=== PATIENT | female | born 1955 | race Caucasian/White ===

== ENCOUNTER → 2017-01-30 | Outpatient (CLI) | payer BC ==
[~2017-01-30] MED LIST: AZEL0.15 NAE; B-CO1TAB53 PO; CITA40TA4 PO; CYAN100020 PO; EST5 PO; ESZO1TAB20 PO; FLAX10007 PO; FLNIN/ NAE; Folic Acid PO; GLUC1CAP33 PO; IBUP-1451 PO; MULTTAB58 PO; RST15 PO; WLLSR100 PO; ZOLP10TA6 PO; ZOLP1TAB PO
== END | disposition home or self-care (01) ==
LOC: C.PAPS 08:50
PROVIDERS: ATTEND Physician Assistant
DX: Z01.419 Encounter for gynecological examination (general) (routine) without abnormal findings (principal)

== ENCOUNTER → 2017-02-01 | Outpatient (CLI) | payer BC ==
[2017-02-04 10:12] LABS: C-REACTIVE PROT HIGHSEN <0.2 MG/L
== END | disposition home or self-care (01) ==
LOC: C.LAB 14:28
PROVIDERS: ATTEND Nurse Practitioner
DX: G47.00 Insomnia, unspecified (principal); M46.90 Unspecified inflammatory spondylopathy, site unspecified

== ENCOUNTER → 2017-07-10 | Outpatient (CLI) | payer BC ==
--- NOTE | 2017-07-10 14:28 | DIAGNOSTIC IMAGING REPORT ---
RIGHT KNEE 4 OR MORE CLINICAL HISTORY: RIGHT KNEE PAIN Right pain COMPARISON: None. DISCUSSION: Moderate degenerative changes lateral joint compartment as well as patellofemoral joint. Medial compartment appears to be generally intact. Mild reactive osteophytic change. There is no evidence for soft tissue swelling. IMPRESSION: Degenerative changes lateral and patellofemoral joint compartments. No acute posttraumatic abnormality. The above report was generated using voice recognition software. It may contain grammatical, syntax or spelling errors. Electronically signed by: Ambrocio Yousif M.D. 07/10/2017 2:26 PM Dictated Date/Time: 07/10/2017 2:26 PM
== END | disposition home or self-care (01) ==
LOC: C.RDSM 11:19
PROVIDERS: ATTEND Physician Assistant
DX: M25.561 Pain in right knee (principal)

== ENCOUNTER → 2017-09-01 | Outpatient (CLI) | payer BC ==
--- NOTE | 2017-09-01 10:57 | DIAGNOSTIC IMAGING REPORT ---
CERVICAL WITHOUT CONTRAST HISTORY: 62 years-old Female CERVICAL PAIN acute cervical spine pain with numbness and tingling of the upper extremities COMPARISON: MRI cervical spine 05/31/2017 TECHNIQUE: Multiplanar multisequence MRI the cervical spine was obtained without contrast. Sagittal T2 flexion and extension views were also obtained. FINDINGS: The imaged posterior fossa is unremarkable. Signal within the brainstem and cervical cord is within normal limits. No focal bone marrow edema or fracture or marrow replacing process. Straightening of the normal cervical lordosis. Imaged soft tissues are unremarkable with the exception of a suggested 4 mm T2 hyperintense left thyroid nodule which is nonspecific. Nonspecific ovoid circumscribed 6 mm area of increased T2 signal is noted in the region of the right hyoid bone on image 80 of series 7 of unknown clinical significance. There is no change in alignment with the flexion and extension views. C2-C3: Mild facet arthrosis without significant central canal or foraminal narrowing. Unchanged. C3-C4: Mild uncovertebral spurring and facet arthrosis. No central canal or foraminal narrowing. Unchanged. C4-C5: Mild facet arthrosis, intervertebral disc space narrowing and uncovertebral spurring. No central canal or foraminal narrowing. Unchanged. C5-C6: Moderate intervertebral disc space narrowing with broad-based posterior disc osteophyte complex and mild facet arthrosis causing mild to moderate right foraminal narrowing which appears generally unchanged. Central canal and left foramen are patent. C6-C7: Moderate intervertebral disc space narrowing with uncovertebral spurring and mild facet arthrosis. Broad-based posterior disc osteophyte complex flattens the ventral thecal sac causing mild central canal and mild right foraminal narrowing. The left foramen is patent. Findings appear generally unchanged. C7-T1: Mild facet arthrosis with broad-based left paracentral disc bulge causing mild left lateral recess narrowing. Bilateral foramen and central canal are generally patent. This is generally unchanged. Small disc protrusion noted within the left lateral recess distribution at T3-T4 causing mild left lateral recess narrowing, only seen on the sagittal images, for example image 10 of series 5. This finding appears progressed from comparison study. IMPRESSION: 1. Discogenic degenerative changes and facet arthrosis are seen most prominently at C5-C6 and C6-C7 as above. There is no significant change from comparison study dated 05/31/2017. 2. At C6-C7 there is mild central canal and mild right foraminal narrowing. 3. Moderate right foraminal stenosis at C5-C6. 4. Progressively enlarged left lateral recess protrusion seen at T3-T4 on the sagittal images alone resulting in mild left lateral recess narrowing. 5. No fracture or focal bone marrow edema. The above report was generated using voice recognition software. It may contain grammatical, syntax or spelling errors. Electronically signed by: Elliott Ritter M.D. 09/01/2017 10:56 AM Dictated Date/Time: 09/01/2017 10:32 AM
== END | disposition home or self-care (01) ==
LOC: C.MRIBC 08:28
PROVIDERS: ATTEND Neurological Surgery
DX: M47.812 Spondylosis without myelopathy or radiculopathy, cervical region (principal); M48.02 Spinal stenosis, cervical region

== ENCOUNTER → 2018-03-03 | Day surgery (SDC) | payer OTHER ==
[2018-02-27 07:43] VITALS: Ht 167.6 cm; Wt 56.8 kg
[~2018-03-03] VITALS: Ht 167.6 cm; Wt 56.8 kg
[~2018-03-03] MED LIST changes: +ATROPINE SULFATE 0.1 MG/ML 5ML SYR IV PRN; -AZEL0.15 NAE; -B-CO1TAB53 PO; +BIOT1CAP8 PO; +BSP/10 PO; +BUPIVACAINE 0.5 % 5 MG/1 ML MPF 30ML VIAL ONE; +BUSPAR PO; +CALC-214 PO; +CEFAZOLIN 2000MG IV PUSH 15 ML IV SCH; +CEPH500C2 PO; +CHOL1000 PO; -CITA40TA4 PO; -CYAN100020 PO; +DEXAMETHASONE SOD INJ 4 MG/ML VIAL ONE; -EST5 PO; +ESZO1TAB18 PO; -ESZO1TAB20 PO; +EpHEDrine SULFATE INJ 50 MG/ML AMP IV PRN; +FENTANYL CITRATE INJ 50 MCG/1 ML 2 ML VIAL IV PRN; +FENTANYL CITRATE INJ 50 MCG/1 ML 2 ML VIAL ONE; -FLAX10007 PO; -FLNIN/ NAE; -Folic Acid PO; +GABA-113 PO; -GLUC1CAP33 PO; +GLUCTAB7 PO; -IBUP-1451 PO; +KETOROLAC TROMETHAMINE 30 MG/ML VIAL IV. PRN; +KETOROLAC TROMETHAMINE 30 MG/ML VIAL ONE; +LACTATED RINGER'S 1000ML 1,000 ML IV SCH; +LIDOCAINE HCL 2% 2 ML VIAL (20MG/ML) ONE; +LIDOCAINE HCL 2% LOCAL 20 ML VIAL ONE; +MIDAZOLAM HCL 1 MG/ML 2ML VIAL ONE; +MULT-506 PO; -MULTTAB58 PO; +OMEG10007 PO; +ONDANSETRON INJ 2 MG/ML 2 ML VIAL IV PRN; +ONDANSETRON INJ 2 MG/ML 2 ML VIAL ONE; +PROMETHAZINE HCL INJ 6.25 MG in SODIUM CHLORIDE 0.9% 50ML 50 ML IV PRN; +PROPOFOL IV EMULSION 10 MG/ML 20 ML VIAL ONE; -RST15 PO; +SODIUM CHLORIDE 0.9% 1000ML 1,000 ML IV SCH; +TRAZ50TA35 PO; -WLLSR100 PO; -ZOLP10TA6 PO; -ZOLP1TAB PO
--- NOTE | 2018-03-03 06:44 | History & Physical Bridge Note ---
H&P Re-Evaluation Bridge Note: I have examined the patient, reviewed the History & Physical and in the interval since the performance of the History & Physical I have noted the following changes of clinical significance: consent obtained.No changes noted
--- NOTE | 2018-03-03 06:46 | Discharge Instructions ---
Discharge Instructions Date of Service March 03, 2018. Visit Reason for Visit: Left Cubital Tunnel Syndrome, Medial Epicondylitis Discharge Discharge Diagnosis / Problem: same Discharge Goals Goal(s): Decrease discomfort, Improve function Medications Stopped Medications Name(s): na Restart Stopped Medication(s): use all scripts as directed. Activity Recommendations Activity Limitations: as noted below Lifting Limitations: until after follow-up appointment Exercise/Sports Limitations: until after follow-up appointment May Resume Sexual Activity: after follow-up appointment Shower/Bathe: keep incision dry Driving or Machine Use: resume 3 days after discharge Anesthesia . Post Anesthesia Instructions: If you have had General Anesthesia or IV Sedation: * Do not drive today. * Resume driving when surgeon permits. * Do not make important decisions or sign legal documents today. * Call surgeon for: 1. Temperature elevations greater than 101 degrees F. 2. Uncontrollable pain. 3. Excessive bleeding. 4. Persistent nausea and vomiting. 5. Medication intolerance (nausea, vomiting or rash). * For nausea and vomiting use only clear liquids such as: tea, soda, bouillon until nausea subsides, then gradually increase diet as tolerated. * If you have any concerns or questions, call your surgeon's office. If physician is unavailable and it is an emergency, call 911 or go to the nearest emergency room. . Instructions / Follow-Up Instructions / Follow-Up DIET: * Resume previous diet. MEDICATIONS: * Please take your prescriptions as instructed at your pre-op appointment and/ or see medication discharge instructions listed above. * If concerns develop, call your physician's office at . SPECIAL CARE INSTRUCTIONS: * Ice/Elevate as instructed. * Keep dressing clean, dry, intact. * Your surgical extremity may be discolored due to prepping agents used on the skin. A bluish-green tint is a normal variant and should not cause alarm. Call your doctor at [phone] if: * Temperature above 101 degrees * Pain not relieved by pain medicine ordered * There is increased drainage or redness from any incision * You have any unanswered questions, problems or concerns. FOLLOW UP VISIT: * If not already scheduled, please call the office at to schedule a follow-up appointment. Diet Recommendations Recommended Home Diet: resume previous diet Procedures Procedures Performed: see op note Pending Studies Studies pending at discharge: no Medical Emergencies . Who to Call and When: Medical Emergencies: If at any time you feel your situation is an emergency, please call 911 immediately. . Non-Emergent Contact Non-Emergency issues call your: Specialist Call Non-Emergent contact if: temperature is above 101.5, wound has increased drainage, wound has increased redness, wound has increased pain . . "Provider Documentation" section prepared by Wesley Garner. .
--- NOTE | 2018-03-03 07:48 | [facility] Post Operative Brief Note ---
Immediate Operative Summary Operative Date March 03, 2018. Pre-Operative Diagnosis Left elbow cubital tunnel syndrome Post-Operative Diagnosis Same as preop Procedure(s) Performed Left Ulnar Nerve Transposition, Debridement Of Medial Epicondylitis Surgeon Dr. Garner Surveillance Systems Analyst Surgeon(s) Paul Martinez PA-C Estimated Blood Loss Trace Findings Consistent with Post-Op Diagnosis Fluids (cc crystalloids) 600cc Specimens None Drains None Anesthesia Type General Complication(s) none Disposition Accompanied Pt To Recovery: no Disposition: Recovery Room / PACU
--- NOTE | 2018-03-03 08:43 | OPERATIVE REPORT ---
DATE OF OPERATION: 03/03/2018 SURGEON: Wesley Garner MD MARKET SALES MANAGER: Paul Martinez PA-C. No resident or fellow available. PREOPERATIVE DIAGNOSES: Cubital tunnel syndrome and medial epicondylitis, left upper extremity. POSTOPERATIVE DIAGNOSES: Cubital tunnel syndrome and medial epicondylitis, left upper extremity. OPERATION PERFORMED: 1. Ulnar nerve subcutaneous transposition with fascial sling. 2. Debridement of the medial epicondylar muscle mass of common flexor origin with parallel incisions and debridement. PERIOPERATIVE SITUATION: A medically cleared female who has had symptoms for an extended period of time with an EMG nerve conduction study being positive. She has waxed and waned about wanting to do this, finally decided to proceed. Obviously, no guarantees can be given that her symptoms would be eliminated. She understood this. Consent obtained. OPERATIVE FINDINGS: Included significant ulnar nerve scarring with bulbous formation along the cubital tunnel aspect of the nerve. PROCEDURE IN DETAIL: The patient was identified, site verified, consent verified, 2 g of Ancef confirmed as being given. The left upper extremity was prepped and draped in usual routine fashion. Tourniquet was inflated to 250 mmHg after exsanguination of limb with a rubber Esmarch bandage for a total of approximately 25 minutes. An incision was made over the arm with the skin stretched anteriorly. This placed the incision well posterior. Full thickness flaps were raised with care taken to protect the antebrachial and medial antebrachial cutaneous nerves. The nerve was very visible, was started to be released proximally and worked distally. There was significant scarring through the cubital tunnel and scarring of the nerve itself with bulbous changes. It was then mobilized both proximally and distally. It could then easily placed anteriorly. The anterior intermuscular septum was quite large. It was well-developed and was released proximally, dissected distally to use for one of the fascial slings. A second fascial sling was then created out of the common flexor origin. Once this was completed, the muscle was then vertically incised in multiple planes, 3 different ways, and then the area debrided on the epicondyle with a rongeur. This area was then irrigated. The nerve was placed anteriorly. The fascia was then closed with 2-0 Vicryl with no undue tension on the nerve. The nerve was very mobile through the slings and the arm was placed through a full range of motion with no issue. The tourniquet was then deflated. There was no major bleeding encountered either with the vessels. There was no entrapment in the fascial slings. The wound was then closed with 2-0 plain and running 3-0 nylon. Appropriate dressing was applied and a splint applied. The patient transferred to recovery room in satisfactory condition having tolerated the procedure well. Estimated blood loss was trace. Crystalloid 600 mL. No DVT prophylaxis required. I attest to the content of the Intraoperative Record and any orders documented therein. Any exceptions are noted below. MTDD
[2018-03-03 08:50] VITALS: TEMP 36.6
[2018-03-03] MEDS: HYDROCODONE/ACETAMIN 5/325MG TAB PO PRN ×2 (09:05→09:20)
[2018-03-03 09:29] VITALS: BP 116/78; PULSE 62; O2SAT 100
--- NOTE | 2018-03-03 09:31 | [facility] Operative Report ---
Operative Report Operative Date March 03, 2018. Pre-Operative Diagnosis Left elbow cubital tunnel syndrome Post-Operative Diagnosis left elbow same as preop Procedure(s) Performed Left Ulnar Nerve Transposition, Debridement Of Medial Epicondylitis Surgeon Dr. Garner Spin Tank Tender Surgeon(s) Paul Martinez PA-C Estimated Blood Loss Trace Findings Left ulnar nerve entrapment, medial epicondylitis Fluids 600cc Specimens None Drains None Anesthesia Type General Complication(s) none Disposition no Recovery Room / PACU Indications This 62 year old white female presented to the office with complaints of left elbow pain as well as tingling radiating to the forearm. She tried conservative care measures without improvement. She elected to proceed with surgical intervention after being educated about potential risks and outcomes. Preoperative EMG and imaging were obtained. Description of Procedure Patient was taken to the operating room where she was given general anesthesia. She was prepped and draped in usual sterile fashion. Please see Dr. Garner's operative report for specifics of the procedure. I was present for the entire case from initial patient positioning through final wound closure. Assistance was provided in patient positioning, hemostasis, tissue retraction, final wound closure, and postop splinting. Patient was taken to the recovery room in satisfactory condition. I attest to the content of the Intraoperative Record and any orders documented therein. Any exceptions are noted below.
--- NOTE | 2018-03-03 09:53 | Anesthesia Progress Nt - [facility] ---
Anesthesia Post Op Note Date & Time March 03, 2018 at 09:53 Vital Signs Pain Intensity: 5 Vital Signs Past 12 Hours Date Time Temp Pulse Resp B/P (MAP) Pulse Ox O2 Delivery O2 Flow Rate FiO2 03/03/18 09:29 62 16 116/78 (91) 100 Room Air 03/03/18 08:50 36.6 68 16 111/76 (88) 95 Room Air 03/03/18 08:36 36.5 66 16 125/ (83) 99 Room Air 03/03/18 08:32 66 16 03/03/18 08:32 67 16 99 03/03/18 08:31 119/81 03/03/18 08:27 68 17 03/03/18 08:27 67 17 96 03/03/18 08:26 118/80 03/03/18 08:22 65 12 100 03/03/18 08:22 65 12 03/03/18 08:21 111/77 03/03/18 08:17 66 8 03/03/18 08:17 67 8 100 03/03/18 08:16 119/79 03/03/18 08:12 58 10 03/03/18 08:12 58 10 100 03/03/18 08:11 112/80 03/03/18 08:07 62 13 03/03/18 08:07 62 13 100 03/03/18 08:06 114/79 03/03/18 08:02 66 13 100 03/03/18 08:02 66 13 03/03/18 08:00 112/78 03/03/18 07:57 61 14 03/03/18 07:57 61 14 100 03/03/18 07:56 63 11 03/03/18 07:56 63 11 111/80 100 03/03/18 07:52 110/75 03/03/18 07:52 36.5 64 12 110/75 99 Mask 6 03/03/18 06:37 36.2 74 18 132/89 (103) 98 Room Air Notes Mental Status: alert / awake / arousable, participated in evaluation Pt Amnestic to Procedure: Yes Nausea / Vomiting: adequately controlled Pain: adequately controlled Airway Patency, RR, SpO2: stable & adequate BP & HR: stable & adequate Hydration State: stable & adequate Anesthetic Complications: no major complications apparent
== END | disposition home or self-care (01) ==
LOC: X.SURG 06:15
PROVIDERS: ATTEND Physical Medicine & Rehabilitation Sports Medicine
DX: G56.22 Lesion of ulnar nerve, left upper limb (principal); M77.02 Medial epicondylitis, left elbow; M19.90 Unspecified osteoarthritis, unspecified site; Z79.899 Other long term (current) drug therapy; Z98.51 Tubal ligation status; Z90.49 Acquired absence of other specified parts of digestive tract; Z98.818 Other dental procedure status; Z98.890 Other specified postprocedural states

== ENCOUNTER 2018-03-07 21:44 | Emergency (ER) | payer OTHER ==
[~2018-03-07] VITALS: Ht 167.6 cm; Wt 61.9 kg
[~2018-03-07 21:44] MED LIST changes: -ATROPINE SULFATE 0.1 MG/ML 5ML SYR IV PRN; -BSP/10 PO; -BUPIVACAINE 0.5 % 5 MG/1 ML MPF 30ML VIAL ONE; -CEFAZOLIN 2000MG IV PUSH 15 ML IV SCH; -CEPH500C2 PO; -DEXAMETHASONE SOD INJ 4 MG/ML VIAL ONE; -EpHEDrine SULFATE INJ 50 MG/ML AMP IV PRN; -FENTANYL CITRATE INJ 50 MCG/1 ML 2 ML VIAL IV PRN; -FENTANYL CITRATE INJ 50 MCG/1 ML 2 ML VIAL ONE; -KETOROLAC TROMETHAMINE 30 MG/ML VIAL IV. PRN; -KETOROLAC TROMETHAMINE 30 MG/ML VIAL ONE; -LACTATED RINGER'S 1000ML 1,000 ML IV SCH; -LIDOCAINE HCL 2% 2 ML VIAL (20MG/ML) ONE; -LIDOCAINE HCL 2% LOCAL 20 ML VIAL ONE; -MIDAZOLAM HCL 1 MG/ML 2ML VIAL ONE; -ONDANSETRON INJ 2 MG/ML 2 ML VIAL IV PRN; -ONDANSETRON INJ 2 MG/ML 2 ML VIAL ONE; -PROMETHAZINE HCL INJ 6.25 MG in SODIUM CHLORIDE 0.9% 50ML 50 ML IV PRN; -PROPOFOL IV EMULSION 10 MG/ML 20 ML VIAL ONE; -SODIUM CHLORIDE 0.9% 1000ML 1,000 ML IV SCH
[2018-03-07 21:50] VITALS: TEMP 36.3; Ht 167.6 cm; Wt 61.9 kg
[2018-03-07] MEDS ORDERED: BSP/10 PO (22:03)
[2018-03-07] MEDS ORDERED: CEPH500C2 PO (22:03)
--- NOTE | 2018-03-07 22:26 | EMERGENCY ROOM VISIT NOTE ---
History Report prepared by Barbara: Chantelle Ryan Under the Supervision of: Dr. Killian Love M.D. First contact with patient: 22:16 Chief Complaint: SWELLING TO EXTREMITY Stated Complaint: S/P LEFT ARM SURGERY, SWELLING History of Present Illness The patient is a 62 year old female who presents to the Emergency Room with complaints of swelling and discoloration to her left hand and fingers beginning this evening. The patient had surgery on her left ulnar nerve on Friday, four days ago. The patient had surgery for a compression on her nerve. Her surgery was done by Dr. Garner-Orthopedics. The patient reports her pain has been lessening over the past couple days. The patient reports she has had her sling on all day;however, she has been more active today in comparison to how she was just after her surgery. She denies any fever, chills, cough, congestion , nausea, or vomiting. Source of History: patient Onset: this evening Position: finger(s) Quality: other (swelling) Timing: constant Associated Symptoms: No fevers, No chills, No nausea, No vomiting Review of Systems See HPI for pertinent positives and negatives. A total of ten systems were reviewed and were otherwise negative. Past Medical & Surgical Medical Problems: (1) Back pain (2) Back pain (3) Chest pain (4) Hx of mitral valve prolapse (5) Left arm pain Family History Heart disease Social History Smoking Status: Never Smoker Alcohol Use: none Drug Use: none Marital Status: Housing Status: lives with family Current/Historical Medications Scheduled Biotin (Biotin), 1 CAP PO QAM Buspirone HCl (Buspirone HCl), 10 MG PO BID Calcium W/ Magnesium (Calcium & Magnesium), 1 TAB PO QAM Cephalexin Monohydrate (Keflex), 500 MG PO TID Cholecalciferol (Vitamin D3), 1 TAB PO QAM Eszopiclone (Lunesta), 2 MG PO HS Fish Oil ([place]-3), 1 CAP PO QAM Gabapentin (Neurontin), 300 MG PO DAILY Xmyeptygknl-Fgrruejwcvh-Anm C- (Glucosamine Chondroitin), 1 TAB PO QAM Multivitamin (Multivitamin), 1 TAB PO QAM Allergies Coded Allergies: Codeine (Verified Allergy, Intermediate, PASSES OUT, 03/03/18) Adhesives (Verified Allergy, Unknown, SKIN IRRITATION, 03/03/18) Loratadine (Verified Allergy, Unknown, Heart Palpitations, 03/03/18) Reported by PT. Pseudoephedrine (Verified Adverse Reaction, Mild, RAPID HEART BEAT, 03/03/18 ) Physical Exam Vital Signs Date Time Temp Pulse Resp B/P (MAP) Pulse Ox O2 Delivery O2 Flow Rate FiO2 03/07/18 22:46 76 18 120/71 98 03/07/18 21:50 36.3 71 18 128/78 98 Room Air Physical Exam GENERAL: Awake, alert, well-appearing, in no distress HENT: Normocephalic, atraumatic. Oropharynx unremarkable. EYES: Normal conjunctiva. Sclera non-icteric. NECK: Supple. No nuchal rigidity. FROM. No JVD. RESPIRATORY: Clear to auscultation. CARDIAC: Regular rate, normal rhythm. Extremities warm and well perfused. Pulses equal. ABDOMEN: Soft, non-distended. No tenderness to palpation. No rebound or guarding. No masses. RECTAL: Deferred. MUSCULOSKELETAL: Mild swelling in dorsum of left hand with soft compartments, no pain with passive stretch, full ROM without discomfort, PMS intact, upper arm and forearm with soft compartments palpated through dressing. LOWER EXTREMITIES: Calves are equal size bilaterally and non-tender. No edema. No discoloration. NEURO: Normal sensorium. No sensory or motor deficits noted. SKIN: No rash or jaundice noted. Medical Decision & Procedures ED Course 2216: The patient was evaluated in room C1B. A complete history and physical exam was performed. 225: I reevaluated the patient. Discussed results and discharge instructions: She verbalized understanding and agreement. The patient is ready for discharge. Medical Decision I reviewed the patient's past medical history, medications, and the nursing notes as described above. Differential diagnosis: Etiologies such as DVT, musculoskeletal, infection, joint effusion, trauma, lymphedema, idiopathic, CHF, normal post-op swelling as well as others were entertained. The patient is a 62-year-old woman who presents to emergency department with left upper extremity swelling in the setting of having surgery for Left ulnar nerve transposition and debridement of medial epicondylitis on 03/[address] Garner per hpi. Of note, the patient denies any fevers chills, nausea vomiting, increased pain. In fact, the patient reports that her pain was much improved throughout today however she simply noticed the swelling this evening and was concerned. On arrival, the patient is well-appearing in no acute distress, afebrile stable vital signs. On exam the patient has her postoperative surgical splint/dressing. There is mild edema noted to the dorsum of her left hand and fingers with slight ecchymosis but otherwise no erythema, warmth. There is no pain with passive stretch. She has full range of motion of her fingers without discomfort proximally. Compartments of the hand are soft. Additionally, palpation of the volar aspect of her forearm and upper arm also demonstrate soft compartments. Given that the patient is well- appearing, afebrile without erythema or warmth associated with her swelling, her symptoms are most likely related to normal postoperative dependent edema, particularly given that the patient reports that she has been walking around and more active over the past couple of days compared to her initial days after surgery. I discussed with the patient that her swelling is most likely normal and she should attempt a trial of dedicated elevation to see if her swelling improves. Moreover, given that the patient's pain has actually improved and there is no concerning infectious signs or symptoms, I do not feel that there is need to remove the patient's current postoperative splint and dressing at this time. Patient was agreeable with this plan. She will contact Dr. Garner on Friday for reevaluation. Instructed to return if her symptoms do not improve or worsen despite elevation. Findings and plan for follow-up reviewed with patient. Patient agreeable and d/c'd per discharge instructions. Medication Reconcilliation Current Medication List: was personally reviewed by me Blood Pressure Screening Patient's blood pressure: Normal blood pressure Impression Primary Impression: Left arm swelling Scribe Attestation The scribe's documentation has been prepared under my direction and personally reviewed by me in its entirety. I confirm that the note above accurately reflects all work, treatment, procedures, and medical decision making performed by me. Departure Information Dispostion Home / Self-Care Referrals Radha Nava D.O. (PCP) Forms HOME CARE DOCUMENTATION FORM, IMPORTANT VISIT INFORMATION, WORK / SCHOOL INSTRUCTIONS Patient Instructions [facility] Additional Instructions Please follow up with your surgeon, Dr. Garner, for re-evaluation. Your swelling is likely normal postoperative swelling that is gravity dependent. Otherwise, your exam did not show signs of an emergent condition at this time. Elevate your arm above the level of your heart as frequent as possible. Acetaminophen or ibuprofen for pain and fevers as needed. Return to the emergency department for worsening symptoms such as increasing swelling despite elevation, pain, redness, warmth, fevers, chills, nausea or vomiting.
[2018-03-07 22:46] VITALS: BP 120/71; PULSE 76; O2SAT 98
== END 2018-03-07 22:47 | disposition home or self-care (01) ==
LOC: C.EDB 21:46 → C.EDC 22:47
DX: M79.89 Other specified soft tissue disorders (principal); Z79.899 Other long term (current) drug therapy; Z88.5 Allergy status to narcotic agent; Z88.8 Allergy status to other drugs, medicaments and biological substances